=== PATIENT | female | born 1935 ===

== ENCOUNTER 2021-11-30 12:56 | Outpatient (REF) | payer MEDICARE, OTHER, SELFPAY ==
--- NOTE | 2021-12-03 08:50 | MHC.AU.ANO ---
Adult Audiological Evaluation Date of Visit: 11/30/21 Reason for Appointment: Patient has been experiencing balance issues when she is walking, especially when outside, in open spaces, or near the edge/railing of an upper floor. She has experienced a spinning sensation in those moments, and often has to brace herself on the wall to get her bearings. Her PCP has recommended several evaluations, including hearing and vision, to determine what is having an impact on her sense of balance. She has also noticed difficulty hearing in group settings. Although she does not feel her hearing difficulty is strongly impacting her day-to-day communication, she reports there have been misunderstandings with family members. Ear History: Ear Deformity: None Reported Recent Ear Drainage: None Reported Recent Ear Pain: None Reported Family History of Hearing Loss?: Recent Ear Infections: None Reported Ear Infections in Childhood: None Reported History of Ear Wax Buildup: None Reported Previous Ear Surgery: None Reported Bothersome Tinnitus/Ringing/Noises in Ears: None Reported Ear used on the phone: Left Ear Blocked/Full Sensation in Ear(s): None Reported History of occupational noise exposure?: No History: No Medical History: Medical History: Seasonal Allergies Allergies: Ibuprofen Medication List: Atorvastatin, Fosamax Otoscopy: Right Ear: Unremarkable Left Ear: Unremarkable Tympanometry: Tympanometry performed due to: To assess integrity of the middle ear system Right Ear: Negative Middle Ear Pressure (Type C) Left Ear: Normal Middle Ear System (Type A) Hearing Evaluation: Transducer(s) Used: Insert Earphones Method: Conventional Audiometry Stimuli Used: Pure Tones Right Ear: Description of Hearing: Mild to profound sensorineural hearing loss Left Ear: Description of Hearing: Mild to profound sensorineural hearing loss Speech Recognition Threshold (SRT): Method Used: Recorded Lists Stimuli Used: Spondee Words Right Ear: 30 dBHL Left Ear: 30 dBHL Word Discrimination: Method: Recorded Lists Word Lists Used: W-22 Right Ear: 92% at 60 dBHL Left Ear: 88% at 55 dBHL Most Comfortable Level (MCL): Right Ear: 60 dBHL Left Ear: 55 dBHL Interpretation of Results: Patient 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 Research has shown that individuals with untreated hearing loss are more likely to experience problems with balance and falls. When you are not hearing certain sounds around you, it can be difficult to assess what's happening in your environment. For example, hearing your footsteps provides you with feedback that you are making contact with the ground. It is possible the hearing loss may be contributing to the patient's sense of imbalance, though it is highly recommended that she complete all other evaluations ordered by her PCP to get a comprehensive look at the issue. Recommendations: Audiological re-evaluation in one year. A pair of [employer] hearing aids was demoed in office today. Patient walked around with them on, and reported a significant improvement in her balance. Previously, she had to hold onto both railings while walking up and down the ramp to the testing galindo. With the hearing aids on, she was able to walk and up and down the ramp with ease and without holding onto anything. Patient plans to contact her insurance to inquire about hearing aid benefits. If interested in proceeding with hearing aids, she is welcome to contact our office to schedule a hearing aid evaluation. Diagnosis: Primary Diagnosis: H90.3 Bilateral Sensorineural Hearing Loss Signature: Provider: Eden Terrazas, CCC-A
== END 2021-11-30 12:57 | disposition home or self-care (01) ==
LOC: HO.SH 12:56
PROVIDERS: Visit Provider Student in an Organized Health Care Education/Training Program
DX: Z01.118 Encounter for examination of ears and hearing with other abnormal findings (principal); H90.3 Sensorineural hearing loss, bilateral
CPT/HCPCS: 92557; 92567

== ENCOUNTER 2021-12-28 10:16 | Outpatient (REF) | payer SELFPAY ==
--- NOTE | 2022-01-02 15:19 | MHC.AU.HAS ---
Hearing Aid Evaluation Date of Visit: 12/28/21 Historical Information: Description of Hearing: Mild to profound sensorineural hearing loss bilaterally Summary: Patient arrived for hearing aid evaluation. She has decided to proceed with hearing aids after the demo at her last appointment. Hearing aid options discussed. Hearing Aid Prescription: Based on the individual?s shared listening needs, communication environments, dexterity, desire for connectivity, and personal preferences, the following prescription for amplification has been made: Right ear: Bowling Alley Attendant: Phonak Model: Audeo P50-R Battery Size: Rechargeable Color: P1 Manager Of Learning: 1M Left ear: Bowling Alley Attendant: Phonak Model: Audeo P50-R Battery Size: Rechargeable Color: P1 Manager Of Learning: 1M Action Taken/Action Needed: Hearing Instrument Fitting to be scheduled when materials arrive Paid $350 deposit. Primary Diagnosis: H90.3 Bilateral Sensorineural Hearing Loss Signature: Provider: Eden Terrazas, CCC-A
== END 2021-12-28 10:17 | disposition home or self-care (01) ==
LOC: HO.HAP 10:16
PROVIDERS: Visit Provider Student in an Organized Health Care Education/Training Program
DX: Z46.1 Encounter for fitting and adjustment of hearing aid (principal); H90.3 Sensorineural hearing loss, bilateral
CPT/HCPCS: 92590; 92591

== ENCOUNTER 2022-02-12 13:07 | Outpatient (REF) | payer SELFPAY ==
--- NOTE | 2022-02-27 16:20 | MHC.AU.HFU ---
Hearing Instrument Follow-Up- Binaural Date of Visit: 02/26/22 Nurseryman Assistant Used: Right Ear: Concrete Wall Grinder Operator: Phonak Model: Audeo P50-R Serial Number: [id number] Repair Warranty: 04/02/2025 Loss and Damage Warranty: 04/02/2025 Battery Size: Rechargeable Color: P1 Furniture Installer: 1M Type of Mold: Canal Lock C-Shell #[id number] Warranty 04/29/2022 Type of Wax Guard: Cerustop Dispensed By: [facility] Date of Fittin02/12/22 Left Ear: Concrete Wall Grinder Operator: Phonak Model: Audeo P50-R Serial Number: [id number] Repair Warranty: 04/02/2025 Loss and Damage Warranty: 04/02/2025 Battery Size: Rechargeable Color: P1 Furniture Installer: 1M Type of Mold: Canal Lock C-Shell #[id number] Warranty 04/29/2022 Type of Wax Guard: CeruStop Follow-Up Summary: Patient dropped off hearing aids to return for credit. Had spoken to an motion picture commentator last week and determined this was the best course of action. Will submit reimbursement request to patient accounts for this account. Diagnosis Code(s): Primary Diagnosis: H90.3 Bilateral Sensorineural Hearing Loss Signature: Provider: Daniel Mason FAAA
== END 2022-02-12 13:08 | disposition home or self-care (01) ==
LOC: HO.HAP 13:07
PROVIDERS: Visit Provider Student in an Organized Health Care Education/Training Program
DX: Z46.1 Encounter for fitting and adjustment of hearing aid (principal); H90.3 Sensorineural hearing loss, bilateral
CPT/HCPCS: V5261; V5299